=== PATIENT | female | born 1940 | race African-American/Black ===

== ENCOUNTER 2017-03-15 19:01 | Emergency (ER) | payer MEDICARE ==
[~2017-03-15] VITALS: Ht 160 cm; Wt 60.0 kg
[~2017-03-15 19:01] MED LIST: ALLO100T PO; ASPI325T2 PO; BENA40TA3 PO; CLON0.1T PO; DONE5TAB26 PO; FELO10TA PO; GLIM4TAB2 PO; MEMA10TA11 PO; METO100T5 PO; SIMV40TA5 PO
[2017-03-15 19:04] VITALS: BP 216/132
== END 2017-03-16 19:10 | disposition left against medical advice (07) ==
LOC: ER 19:07
DX: R55 Syncope and collapse (principal); E11.9 Type 2 diabetes mellitus without complications; I10 Essential (primary) hypertension; F17.200 Nicotine dependence, unspecified, uncomplicated; Z96.649 Presence of unspecified artificial hip joint